=== PATIENT | female | born 1990 | race Caucasian/White ===

== ENCOUNTER 2017-09-08 22:45 | Outpatient (CLI) | payer BC ==
[~2017-09-08] VITALS: Ht 162.6 cm; Wt 91.4 kg
[2017-09-08 23:00] VITALS: BP 142/92; PULSE 74; TEMP 98.4
[2017-09-08 23:10] VITALS: BP 139/80; PULSE 78
[2017-09-08 23:20] VITALS: BP 132/78; PULSE 78
[2017-09-08 23:30] VITALS: BP 115/68; PULSE 74
[2017-09-08 23:40] VITALS: BP 125/73; PULSE 75
[2017-09-09] VITALS: BP 128/73; PULSE 80
[2017-09-09 00:54] VITALS: BP 142/92; PULSE 80; TEMP 98.4
== END 2017-09-09 00:05 | disposition home or self-care (01) ==
LOC: LDRO 22:45
DX: O99.89 Other specified diseases and conditions complicating pregnancy, childbirth and the puerperium (principal); R32 Unspecified urinary incontinence; Z3A.37 37 weeks gestation of pregnancy

== ENCOUNTER 2017-09-23 09:42 | Inpatient (IN) | payer BC ==
[2017-09-23] VITALS (10 sets, daily range): BP systolic 128–139; BP diastolic 79–95; PULSE 74–86; TEMP 97.9
[~2017-09-23] VITALS: Ht 162.6 cm; Wt 92.3 kg
[2017-09-23 19:57] LABS: COLLECTION METHOD CLEAN CATCH
[2017-09-23 19:58] LABS: BASO % 0.3 % (0.0-2.0); EOS # 0.2 (0.0-0.7); EOS % 1.3 % (0-4.0); GRAN # 8.7 (1.4-6.5); GRAN % 70.1 % (42.2-75.2); HEMATOCRIT 37.2 % (37.0-47.0); HEMOGLOBIN 13.4 g/dl (12.5-16.0); LYMPH # 2.4 (1.2-3.4); LYMPH % 19.6 % (20.0-51.0); MEAN CELL VOLUME 84 fl (80.0-100.0); MEAN CORPUSCULAR HEMOGLOBIN 30 pg (27.0-31.0); MEAN CORPUSCULAR HGB CONC 36 g/dl (33.0-37.0); MEAN PLATELET VOLUME 11.5 fl (7.4-10.4); MONO % 8.1 % (1.7-9.3); PLATELET COUNT 169 K/mm3 (130-400); RED BLOOD COUNT 4.44 M/mm3 (4.10-5.30); REDCELL DISTRIBUTION WIDTH-CV 12.6 % (11.5-14.5)
[2017-09-23 20:11] LABS: ALBUMIN 3.2 gm/dL (3.5-5.0); BILIRUBIN,TOTAL 0.4 mg/dL (0.0-1.0); CALCIUM 9.4 mg/dL (8.4-10.2); CREATININE, serum 0.55 mg/dL (0.52-1.25); POTASSIUM 4.2 mmol/L (3.4-5.0); TOTAL PROTEIN 6.6 gm/dL (6.4-8.2)
[2017-09-23 20:15] LABS: PH 7 (5-8); SQUAMOUS EPITHELIAL 0-2 /hpf; URINE APPEARANCE Clear; URINE BACTERIA Rare /hpf; URINE BILIRUBIN Negative (NEGATIVE); URINE BLOOD Negative (NEGATIVE); URINE COLOR Yellow; URINE GLUCOSE Negative (NEGATIVE); URINE KETONE Negative (NEGATIVE); URINE LEUKOCYTE ESTERASE Negative (NEGATIVE); URINE NITRATE Negative (NEGATIVE); URINE PROTEIN(semi-quant) Negative (NEGATIVE); URINE RBC 0-2 /hpf; URINE UROBILINOGEN Negative (NEGATIVE)
[2017-09-24] VITALS (52 sets, daily range): BP systolic 98–160; BP diastolic 55–98; PULSE 74–121; TEMP 97.9–98.4
[2017-09-24] MEDS ORDERED: PERCOCET 325 MG1 TA2 PO (18:09)
[2017-09-24] MEDS ORDERED: MOTRIN 800800 MG/TAB PO (18:09)
[2017-09-25 02:00] VITALS: BP 140/88; PULSE 85; TEMP 97.5
[2017-09-25 08:00] VITALS: BP 122/79; PULSE 92; TEMP 98.2
[2017-09-25 12:00] VITALS: BP 134/88; PULSE 94; TEMP 98.1
[2017-09-25 16:00] VITALS: BP 123/73; PULSE 91; TEMP 97.8
[2017-09-25 21:00] VITALS: BP 134/88; PULSE 94; TEMP 98.4
[2017-09-26 07:50] VITALS: BP 134/81; PULSE 85; TEMP 98.4
== END 2017-09-26 15:40 | disposition home or self-care (01) | DRG 775 ==
LOC: LDR 09:42 → OB 09-24 20:30
PROVIDERS: Obstetrics & Gynecology
PROC: 10E0XZZ Delivery of Products of Conception, External Approach (ICD-10-PCS; principal; 2017-09-24)
PROC: 0KQM0ZZ Repair Perineum Muscle, Open Approach (ICD-10-PCS; 2017-09-24)
PROC: 10907ZC Drainage of Amniotic Fluid, Therapeutic from Products of Conception, Via Natural or Artificial Opening (ICD-10-PCS; 2017-09-24)
PROC: 3E0P7VZ Introduction of Hormone into Female Reproductive, Via Natural or Artificial Opening (ICD-10-PCS; 2017-09-24)
PROC: 3E033VJ Introduction of Other Hormone into Peripheral Vein, Percutaneous Approach (ICD-10-PCS; 2017-09-24)
DX: O13.4 Gestational [pregnancy-induced] hypertension without significant proteinuria, complicating childbirth (principal); Z3A.39 39 weeks gestation of pregnancy; Z37.0 Single live birth; O70.1 Second degree perineal laceration during delivery; O99.214 Obesity complicating childbirth
CPT/HCPCS: J2590; J2795; J7120

== ENCOUNTER 2019-12-01 09:31 | Outpatient (CLI) | payer BC ==
[~2019-12-01] VITALS: Ht 162.6 cm; Wt 93.2 kg
[~2019-12-01 09:31] MED LIST changes: -CALCIUM CARBON650 M2; -PRENATAL TABLET PO
--- NOTE | 2019-12-01 09:40 | NUR ---
Patient ambulatory to LR4 with spouse, changed into gown, FHR/TOCO monitors applied. Patient states "I got out of the shower last night and had leaking down my leg and then later it happended again and it was clear/white cloudy". Denies any regular contractions, vaginal bleeding, or decreased movement. Plan of care discussed. 0950: SVE-3/70/-3 and amniotest negatice-white mucousy discharge noted on glove. Assessment completed an Dr. Alejo notified. Ordered to recheck in an hour and continue to take blood pressures.
[2019-12-01] MEDS ORDERED: PRENATAL TABLET PO (09:51)
[2019-12-01] MEDS ORDERED: CALCIUM CARBON650 M2 (09:52)
[2019-12-01 10:15] VITALS: BP 123/73; PULSE 89; TEMP 98.3
--- NOTE | 2019-12-01 10:50 | NUR ---
SVE-3/70/-[address] Alejo notified and discharge orders given. 1052: Patient off monitors Discharge instructions given and patient agrees and understands. 1100: Patient ambulates off unit with spouse.
[2019-12-01 10:52] VITALS: BP 128/67; PULSE 86
== END 2019-12-01 11:00 | disposition home or self-care (01) ==
LOC: LDRO 09:31
DX: Z34.93 Encounter for supervision of normal pregnancy, unspecified, third trimester (principal); Z3A.39 39 weeks gestation of pregnancy

== ENCOUNTER → 2019-12-01 | Outpatient (CLI) | payer BC ==
[~2019-12-01] MED LIST: CALCIUM CARBON650 M2; MOTRIN 800800 MG/TAB PO; PERCOCET 325 MG1 TA2 PO; PRENATAL TABLET PO
== END ==
LOC: ZCOL.LAB 09:00
DX: Z20.828 Contact with and (suspected) exposure to other viral communicable diseases (principal)

== ENCOUNTER 2019-12-05 01:46 | Inpatient (IN) | payer BC ==
[~2019-12-05] VITALS: Ht 162.6 cm; Wt 93.6 kg
[2019-12-05] VITALS (29 sets, daily range): BP systolic 112–156; BP diastolic 55–86; PULSE 78–117; TEMP 98–98.4
[~2019-12-05 01:46] MED LIST changes: +CALCIUM CARBON650 M2; +PRENATAL TABLET PO
--- NOTE | 2019-12-05 01:50 | NUR ---
G3L1. 40.0. Wheeled to LDR 5 with spouse. Clean gown on. Pt moaning and unable to lay back for SVE. SVE /-2, bolgy bag noted. EFM and TOCO explained and applied. Pt states contractions started at 0000 and have been 3.5-5 mins apart. Denies leaking of fluids. States she has had some bloody show. Reports good movement. VS and assessment completed. Pt requesting an epidural. Plan of care explained to pt and spouse. 0222: updated on pts status. See physican notification.
[2019-12-05 03:18] LABS: BASO # 0.1 (0.0-0.2); BASO % 0.3 % (0.0-2.0); EOS # 0.1 (0.0-0.7); EOS % 0.5 % (0-4.0); GRAN # 13.3 (1.4-6.5); GRAN % 78.1 % (42.2-75.2); HEMOGLOBIN 13.3 g/dl (12.5-16.0); LYMPH # 2.5 (1.2-3.4); LYMPH % 14.5 % (20.0-51.0); MEAN CELL VOLUME 85 fl (80.0-100.0); MEAN CORPUSCULAR HEMOGLOBIN 31 pg (27.0-31.0); MEAN CORPUSCULAR HGB CONC 36 g/dl (33.0-37.0); MEAN PLATELET VOLUME 10.6 fl (7.4-10.4); MONO % 6.1 % (1.7-9.3); PLATELET COUNT 179 K/mm3 (130-400); RED BLOOD COUNT 4.31 M/mm3 (4.10-5.30); REDCELL DISTRIBUTION WIDTH-CV 13.2 % (11.5-14.5)
--- NOTE | 2019-12-05 03:21 | NUR ---
0301- IRIS KUMAR IN ROOM FOR EPIDURAL PLACEMENT. PT SITTING UP AT BEDSIDE. 0310- SINGLE SHOT GIVEN BY Kyle WANG CRNA, PT TOLERATED WELL. 0312- TEST DOSE GIVEN BY Carlos WANG CRNA, PT TOLERATED WELL. 0321- PT REPOSITIONED IN BED IN SEMIFOWLERS.
[2019-12-05 03:28] LABS: HEMATOCRIT 36.8 % (37.0-47.0)
--- NOTE | 2019-12-05 06:30 | NUR ---
CARE OF THE PT ASSUMED AT THIS TIME. RECORDS REVIEWED. PLAN OF CARE REVIEWED WITH PT. PT REPORTS SHE IS COMFORTABLE.
--- NOTE | 2019-12-05 07:00 | NUR ---
PHONED DR LIPSCOMB AT 0648 TO NOTIFY HER OF THIS PT AND HER STATUS. SHE SAYS IF ANYTHING IS NEEDED BEFORE 0700 DR SNOWDEN NEEDS TO BE CALLED.
--- NOTE | 2019-12-05 07:15 | NUR ---
HORTENCIA AT 0705 /-2. TRIAL OF PUSHING ATTEMPTED WITH GOOD MOVEMENT OF HEAD TO [address] LIPSCOMB HERE AT 0711 AND DOES NOT WANT ANY MORE PUSHING AT THIS TIME.
--- NOTE | 2019-12-05 07:30 | NUR ---
DR LIPSCOMB IN AT 0726. AROM WITH CLEAR FLUID AT 0727. SMALL AMOUNT OF CERVIX LEFT AT ANTERIOR RIM.
--- NOTE | 2019-12-05 07:42 | NUR ---
DR LIPSCOMB IN AT 0735. PT WITH COMPLETE CERVICAL DILATION. PT PREPPED AND POSITIONED FOR PUSHING. RUIZ CATHETER REMOVED PRIOR TO STARTING PUSHING. PUSHING STARTED AT 0737. DELIVERY OF INFANT HEAD AT 0740 WITH TIGHT NUCHAL CORD CUT AFTER DELIVERY OF HEAD. APPROX 45 SECONDS LATER DELIVERY OF BODY. TO MOTHER'S ABDOMEN. SPONTANEOUS DELIVERY OF PLACENTA AT 0742.
--- NOTE | 2019-12-05 07:43 | NUR ---
DR LIPSCOMB AT BEDSIDE REPAIRING 2ND DEGREE PERINEAL TEAR. PITOCIN STARTED AT 333ML/HR AT 0743. FUNDUS FIRM WITH FUNDAL MASSAGE.
--- NOTE | 2019-12-05 08:13 | NUR ---
SMALL AMOUNT OF CLOTS WITH FUNDAL MASSAGE AND SMALL AMOUNT OF FREE FLOW BLEEDING. FUNDUS FIRM.
--- NOTE | 2019-12-05 09:12 | NUR ---
IV TO INT AT THIS TIME. PT HAVING SOME CRAMPING AND WOULD LIKE AN IBUPROFEN.
--- NOTE | 2019-12-05 09:53 | NUR ---
LEFT LEG STILL A LITTLE NUMB. PT WANTING TO EAT MORE BREAKFAST. WILL TRY TO GET HER UP IN THE NEXT 30 MINUTES AFTER SHE EATS IF HER LEFT LEG FEELING RETURNS.
[2019-12-05] MEDS ORDERED: MOTRIN 800800 MG/TAB PO (19:51)
[2019-12-06 01:15] VITALS: BP 135/88; PULSE 84; TEMP 97.9
[2019-12-06 04:50] VITALS: BP 136/77; PULSE 82; TEMP 98.1
[2019-12-06 09:00] VITALS: BP 134/84; PULSE 91; TEMP 98.4
== END 2019-12-06 13:25 | disposition home or self-care (01) | DRG 768 ==
LOC: LDRO 01:46 → LDR 02:32 → OB 10:54
PROVIDERS: Student in an Organized Health Care Education/Training Program; ADMIT Obstetrics & Gynecology
PROC: 10E0XZZ Delivery of Products of Conception, External Approach (ICD-10-PCS; principal; 2019-12-05)
PROC: 0UBMXZZ Excision of Vulva, External Approach (ICD-10-PCS; 2019-12-05)
PROC: 0KQM0ZZ Repair Perineum Muscle, Open Approach (ICD-10-PCS; 2019-12-05)
DX: O99.214 Obesity complicating childbirth (principal); Z37.0 Single live birth; E66.9 Obesity, unspecified; Z3A.40 40 weeks gestation of pregnancy; O70.1 Second degree perineal laceration during delivery; O99.72 Diseases of the skin and subcutaneous tissue complicating childbirth; L91.8 Other hypertrophic disorders of the skin; O99.62 Diseases of the digestive system complicating childbirth; O99.02 Anemia complicating childbirth; K21.9 Gastro-esophageal reflux disease without esophagitis; D64.9 Anemia, unspecified
CPT/HCPCS: J2590; J2795; J7120